=== PATIENT | female | born 1980 | race American Indian/Alaskan Native ===

== ENCOUNTER 2017-09-05 11:03 | Outpatient (CLI) | payer BC ==
--- NOTE | 2017-09-06 11:52 | Mammography Report ---
BILATERAL DIGITAL SCREENING MAMMOGRAM with CAD and 3-D TOMOSYNTHESIS: 09/05/17 11:30:00 CLINICAL: Baseline screening. FINDINGS: The breasts are heterogeneously dense, which may obscure small masses. Bilateral circumscribed asymmetries are identified on the tomosynthesis views and required additional imaging. No architectural distortion or suspicious calcifications. IMPRESSION: Bilateral circumscribed asymmetries requiring additional workup. BI-RADS CATEGORY: 0--Needs Additional Imaging RECOMMENDATION: Recall for bilateral breast ultrasound. COMMENT: Patient follow-up letters are generated by our [employer] application.
== END 2017-09-05 11:04 | disposition home or self-care (01) ==
LOC: MAMMO 11:03
PROVIDERS: ATTEND Nurse Practitioner Family
DX: Z12.31 Encounter for screening mammogram for malignant neoplasm of breast (principal)
CPT/HCPCS: 77063; G0202; 77067

== ENCOUNTER 2017-09-21 13:20 | Outpatient (CLI) | payer BC ==
--- NOTE | 2017-09-22 09:20 | Ultrasound Report ---
Sonogram right and left breast: History: Bilateral circumscribed asymmetries. Findings: Innumerable subcentimeter complex and simple cysts are identified at right and left breast. Differential diagnosis of complex cyst would be small fibroadenomas. Right breast. There is subcentimeter cyst identified at 1:00 position 3 cm from nipple and 9:00 position 7 cm from nipple and 8:00 position 7 cm from nipple and 2:00 position 5 cm from nipple and 3:00 position 6 cm from nipple. Left breast. Multiple subcentimeter cysts are identified at 2:00 position left breast 5 cm from nipple. Subcentimeter cyst is also noted at 4:00 position 8 cm from nipple and 7 o'clock position 3 cm from nipple and 9:00 position 3 cm from nipple and 11:00 position 1 cm from nipple. There is 1.3 cm cyst identified at 10:00 position 5 cm from nipple Impression: Findings as detailed above. 6 month followup with mammogram and sonogram recommended. BI-RADS CATEGORY: 3 = Probably benign ACR BI-RADS MAMMOGRAPHIC CODES: 0 = Needs additional imaging evaluation; 1 = Negative; 2 = Benign; 3 = Probably benign; 4 = Suspicious; 5 = Malignant; 6 = Known biopsy-proven malignancy COMMENT: 1. Dense breast tissue, i.e., adenosis, fibrocystic changes, etc., may obscure an underlying neoplasm. 2. Approximately 10% of cancers are not detected with mammography. 3. A negative mammography report should not delay biopsy if a clinically suspicious mass is present.
== END 2017-09-21 13:21 | disposition home or self-care (01) ==
LOC: US 13:20
PROVIDERS: ATTEND Nurse Practitioner Family
DX: N60.01 Solitary cyst of right breast (principal); N60.02 Solitary cyst of left breast